=== PATIENT | male | born 1955 | race Asian ===

== ENCOUNTER 2022-08-23 13:25 | Outpatient (REF) | payer SELFPAY ==
[2022-08-23 14:40] LABS: Influenza A PCR NEGATIVE (Negative); Influenza B PCR NEGATIVE (Negative); Resp Syncy Virus RNA Qual PCR NEGATIVE (Negative); SARS COV2 PCR INHOUSE NEGATIVE (Negative)
== END 2022-08-23 13:26 | disposition home or self-care (01) ==
LOC: HO.LAB 13:25
PROVIDERS: Visit Provider Internal Medicine
DX: R43.9 Unspecified disturbances of smell and taste (principal); Z20.822 Contact with and (suspected) exposure to COVID-19
CPT/HCPCS: 0241U

== ENCOUNTER 2024-12-21 21:56 | Emergency (ER) | payer MEDICAID, SELFPAY ==
--- NOTE | 2024-12-21 | ECG_ITS ---
Test Reason : NEAR SYNCOPE Blood Pressure : */* mmHG Vent. Rate : 91 BPM Atrial Rate : 91 BPM P-R Int : 148 ms QRS Dur : 86 ms QT Int : 374 ms P-R-T Axes : 19 -52 48 degrees QTcB Int : 460 ms Normal sinus rhythm Left anterior fascicular block Abnormal ECG No previous ECGs available Referred By: Ke iMranda Electronically Signed By: VJ HUMPHREYS MD
--- NOTE | ~2024-12-21 | XR_ITS ---
CLINICAL HISTORY: weakness 2 view chest x-ray Comparison: None Findings: The lungs are clear. Normal size heart. No acute fracture. IMPRESSION: 1. No acute findings. This document has been electronically signed by: Rahul Mesa MD on 12/22/2024 07:33:36
[2024-12-21 22:05] VITALS: BP 110/70; BP 140/66; PULSE 70; PULSE 84; RESP 16; TEMP 36.4; O2SAT 95; O2SAT 96; BMI 19.5
[2024-12-21 22:28] LABS: Basophils Absolute Auto 0.1 X10*3/uL (0.0-0.2); Basophils Percent Auto 1.1 % (0-2); Hematocrit 38.1 % (42.0-52.0); Hemoglobin 13.3 g/dl (14.0-18.0); Mean Corpuscular HGB Conc 34.9 g/dl (31.0-36.0); Mean Corpuscular Hemoglobin 31.4 pg (27.0-33.0); Mean Corpuscular Volume 89.9 fL (80.0-98.0); PLT CLUMP 1; Red Blood Count 4.24 X10*6/uL (4.60-5.80); Red Cell Distribution Width 11.3 % (11.0-16.0); SCAN SMEAR FLAG 1
[2024-12-21 22:30] LABS: Eosinophils Absolute Auto 0.4 X10*3/uL (0.0-0.4); Eosinophils Percent Auto 6.6 % (0-4); Imm Gran Abs Auto 0.02 X10*3/uL (0.00-0.03); Imm Gran Pct Auto 0.4 % (0.0-0.4); Lymphocytes Absolute Auto 1.7 X10*3/uL (1.2-4.9); Lymphocytes Percent Auto 31.9 % (20-40); Mean Platelet Volume 10.7 fL (9.4-12.4); Monocytes Absolute Auto 0.5 X10*3/uL (0.1-1.2); Monocytes Percent Auto 9.6 % (2-11); Neutrophils Absolute Auto 2.7 x10*3/uL (2.0-8.3); Neutrophils Percent Auto 50.4 % (45-73)
[2024-12-21 22:34] LABS: Platelet Count 139 X10*3/uL (160-400); White Blood Count 5.4 X10*3/uL (4.8-10.8)
[2024-12-21 22:35] LABS: MANUAL DIFF FLAG NO
[2024-12-21 22:40] LABS: Anion Gap 10 (12-20); Blood Urea Nitrogen 21 mg/dL (9-16); Calcium 8.5 mg/dL (8.4-10.2); Carbon Dioxide 24 mmol/L (22-29); Chloride 107 mmol/L (96-108); Creatinine Clr Calc Pharmacy 34.5; Estimated Glomerular Filt Rate 45; Glucose Random 323 mg/dL (60-115); Potassium 3.9 mmol/L (3.3-5.1); Sodium 137 mmol/L (135-145)
[2024-12-21 22:48] LABS: Troponin-I High Sensitivity 9.5 ng/L (<3.5-35.0)
[2024-12-21 23:05] LABS: Influenza A PCR NEGATIVE (Negative); Influenza B PCR NEGATIVE (Negative); Resp Syncy Virus RNA Qual PCR NEGATIVE (Negative); SARS COV2 PCR INHOUSE NEGATIVE (Negative)
--- NOTE | 2024-12-22 00:06 | PC.NURSE ---
Pt is awake, alert, and oriented X 4 with assistance from son. OOB to use the bathroom, accompanied by son. Ambulates with a steady gait unassisted. Pt denies any dizziness or fatigue at this time. Denies any complaints or concerns.
[2024-12-22 00:25] LABS: Appearance Urine Clear; Color Urine Yellow; Glucose Urine UA >=1000 mg/dL (Negative); Leukocyte Esterase Urine Negative (Negative); Nitrite Urine Negative (Negative); Specific Gravity - Urine 1.015 (1.005-1.025); UMIC TRIGGER UACC YES; Urine Blood Negative (Negative); Urine Ketones Negative (Negative); Urine Protein Negative (Neg-Trace)
[2024-12-22 00:27] LABS: Bacteria Urine None Seen (None Seen); Hyaline Casts Urine 0-2 /LPF (0-2); RBC Urine 0-2 /HPF (0-2); Squamous Epithelial Cell Urine 0-2 /HPF (0-2); WBC Urine 0-5 /HPF (0-5)
--- NOTE | 2024-12-22 02:41 | PC.NURSE ---
Pt has been sleeping most of the shift with son at the bedside. Pt is easily arousable to verbal stimuli and VS have been stable since arrival. Denies any pain or discomfort at this time. Ambulates well without assistance, uses a steady gait.
[2024-12-22 05:47] VITALS: BP 152/91; PULSE 84; RESP 22; TEMP 36.5; O2SAT 95
--- NOTE | 2024-12-22 06:49 | ED_ITS ---
HPI - Weakness General Chief complaint: Weakness Stated complaint: GEN WEAKNESS, LETHARGIC PER EMS Time Seen by Provider: 12/22/24 06:41 Source: patient Mode of arrival: ambulatory Limitations: language barrier (Yi speaking ) History of Present Illness ED Provider: Ashley Landers APRN HPI Narrative: 69 yo male with no known medical history presents to the ER with complaints of feeling tired last evening while eating his dinner at 20:00. Patient reports he was sitting down eating when he felt tired which she describes as feeling sleepy. Patient reports he was able to eat dinner and since being here in the emergency room he feels much improved. Denies any associated chest pain, shortness of breath, headache, abdominal pain, dizziness, nausea, vomiting, diaphoresis. Patient reports that [place] the [place] 6 months out of the year and then lives in [place] for 6 months. He does not have a primary care doctor in the [place] He is unsure if he has active insurance. Related Data Previous Rx's ?Medication ?Instructions ?Recorded azithromycin 250 mg tablet See Rx Instructions PO .COMPLEX #6 08/23/22 tabs prednisone 20 mg tablet 60 mg (3 x 20 mg) PO DAILY #9 tabs 08/23/22 blood sugar diagnostic (FreeStyle #100 ea 12/22/24 Lite Strips) blood-glucose meter (FreeStyle #1 ea 12/22/24 [place] Lite kit) empagliflozin 10 mg tablet 10 mg PO DAILY #30 tabs 12/22/24 (Jardiance) insulin glargine 100 unit/mL (3 15 unit (0.15 mL) subcut QAM #15 mL 12/22/24 mL) subcutaneous pen (Lantus Solostar U-100 Insulin) lancets 28 gauge (FreeStyle #100 ea 12/22/24 Lancets) Allergies Allergy/AdvReac Type Severity Reaction Status Date / Time No Known Allergies Allergy Verified 12/21/24 22:10 Review of Systems 2 Review of Systems: Yes all other systems are reviewed and are negative Constitutional: Constitutional: Reports no additional constitutional complaints, Denies body ache(s), Denies chills, Denies fever(s), Denies headache(s) and Reports weakness Eyes: Eyes: Reports no additional eye complaints and Denies change in vision ENT: Reports system reviewed and no additional complaints, except as documented, Denies dizziness, Denies headache(s), Denies nasal congestion, Denies nasal discharge and Denies neck pain Cardiovascular: Cardiovascular: Reports no additional cardiovascular complaints, Denies chest pain, Denies leg edema and Denies dyspnea Respiratory: Respiratory: Reports no additional respiratory complaints, Denies cough and Denies dyspnea Gastrointestinal: Gastrointestinal: Reports no additional gastrointestinal complaints, Denies abdominal pain, Denies diarrhea, Denies nausea and Denies vomiting Genitourinary: Genitourinary: Denies urinary incontinence Musculoskeletal: Musculoskeletal: Reports no additional musculoskeletal complaints, Denies back pain, Denies arthralgias, Denies joint swelling, Denies neck pain, Denies numbness and Denies tingling Integumentary/Breasts: Skin/Breast: Reports system reviewed and no additional complaints, except as docu and Denies rash Neurologic: Reports system reviewed and no additional complaints, except as documented, Denies Abnormal speech present, Denies dizziness, Denies headache(s), Denies numbness, Denies tingling and Reports weakness PMFSH Past Medical History Attestation statement: The following information was validated with the patient. Source: old records reviewed and nursing notes reviewed Physical Exam 2 Vital Signs: Vital Signs: Last Vital Signs Temp 97.7 F 12/22/24 10:51 Pulse 92 12/22/24 10:51 Resp 18 12/22/24 10:51 BP 164/86 H 12/22/24 10:51 Pulse Ox 95 12/22/24 10:51 O2 Del Method Room Air 12/22/24 10:51 BMI result Body Mass Index 19.5 Const: General: cooperative, healthy appearing, comfortable and no acute distress Orientation/consciousness: patient oriented x3 Limitations: no limitations HEENT: Head: Yes normal to inspection Ears: hearing grossly normal bilaterally and TM's normal bilaterally General nose exam: Normal external nose present Face and sinus: Yes normal facial exam Mouth: Normal oral and palatal mucosa present Throat: Yes posterior oropharynx normal, Yes tonsils normal and Yes uvula midline Eyes: General: appearance normal, both eyes and all related structures P upils: Equal, round and reactive pupils present Neck: Neck: Yes normal visual inspection, Yes full ROM, Yes no lymphadenopathy and Yes no meningeal signs Chest: Chest palpation & inspection: normal inspection of the chest Resp: Effort & Inspection: normal respiratory effort Auscultation: clear to auscultation bilaterally Cardio: Rate: regular rate Rhythm: regular rhythm Peripheral pulses: P eripheral pulses 2+ throughout GI: Inspection: Yes normal to inspection Palpation (GI): Soft to palpation and nontender Auscultation: normal bowel sounds Back/Spine/Pelvis: Thoracic/Lumbar Spine: thoracic and lumbar spine normal to inspection Skin: General skin exam: no rashes or lesions noted Neuro: General: patient oriented x3, no meningeal signs, no focal motor deficits and normal sensation to monofilament Cranial nerves: Yes Equal, round and reactive pupils present Cognition (Neuro): normal cognition S peech: No Abnormal speech present Gait exam (Neuro): Normal gait present M otor exam (neuro): 5/5 motor strength present throughout Extrem: General: Yes normal to inspection and Yes full ROM Course Course Course Narrative: BG 323. Will add on A1c. No known history of DM. Reevaluation(s) Reevaluation #1: A1c is 9.5. Consistent with diagnosis of diabetes. Discussed case with Dr. Malik. Due to mild CKD patient will be started on Lantus 15 units daily and Jardiance 10 mg daily. The patient was instructed in the ER by the nurse on how to check his blood sugar as well as how to self administer in insulin. We discussed dietary changes at home. He did meet with case management and was provided resources on outpatient primary care. I was able to send his prescriptions into the pharmacy and I did verify with the pharmacist that he had active insurance. Reviewed worrisome signs and symptoms of when to return to the emergency room. Comfortable plan for discharge home. Medications Administered Discontinued Medications Generic Name Dose Route Start Last Admin Trade Name Freq PRN Reason Stop Dose Admin Sodium Chloride 500 mls @ 999 mls/hr 12/22/24 07:08 12/22/24 08:06 Ns IV 12/22/24 07:38 Infused .Q31M STA Infusion Insulin Glargine 15 unit 12/22/24 09:55 12/22/24 10:18 Insulin Glargine,Hum.Rec.Anlog 100 Unit/Ml 10 Ml Vial SUBCUT 12/22/24 09:56 15 unit STAT STA Administration Medical Decision Making Medical Decision Making MDM Narrative: 69yo male with no known medical history but several social barriers here with a vague episode of fatigue last evening at 8pm now resolved with no other associated symptoms. Exam is benign with no focal finding. VSS Will obtain labs, EKG, CXR, UA, viral testing Differential Diagnosis Differential Diagnoses: The differential diagnosis associated with the presentation includes Metabolic cause, underlying infectious cause ACS less likely with 2 flat troponins, non ischemic EKG Low suspician for SAH, CVA, MG with no focal findings on exam Admission/Observation Consideration of admission/observation: Escalation of care including admission/observation considered New diagnosis of DM not in DKA. Will need CM involvement to help establish PCP, understand insurance coverage and determine dispo home Consult Healthcare Provider Case management Lab Data MDM Lab Attestation statement: I reviewed the patient's lab results. 12/21/24 22:23 12/21/24 22:23 Labs: Lab Results 12/21/24 12/22/24 12/22/24 Range/Units 22:23 00:20 07:27 WBC 5.4 (4.8-10.8) X10*3/uL RBC 4.24 L (4.60-5.80) X10*6/uL Hgb 13.3 L (14.0-18.0) g/dl Hct 38.1 L (42.0-52.0) % MCV 89.9 (80.0-98.0) fL MCH 31.4 (27.0-33.0) pg MCHC 34.9 (31.0-36.0) g/dl RDW 11.3 (11.0-16.0) % Plt Count 139 L (160-400) X10*3/uL MPV 10.7 (9.4-12.4) fL Immature Gran % (Auto) 0.4 (0.0-0.4) % Neut % (Auto) 50.4 (45-73) % Lymph % (Auto) 31.9 (20-40) % [place] % (Auto) 9.6 (2-11) % Eos % (Auto) 6.6 H (0-4) % Baso % (Auto) 1.1 (0-2) % Lymph # (Auto) 1.7 (1.2-4.9) X10*3/uL [place] # (Auto) 0.5 (0.1-1.2) X10*3/uL Eos # (Auto) 0.4 (0.0-0.4) X10*3/uL Baso # (Auto) 0.1 (0.0-0.2) X10*3/uL Abs Immat Gran (auto) 0.02 (0.00-0.03) X10*3/uL Absolute Neuts (auto) 2.7 (2.0-8.3) x10*3/uL Absolute Nucleated RBC 0.000 (0.0-0.012) X10*3/uL Nucleated RBC % (auto) 0.0 (0.0-0.2) /100WBC Sodium 137 (135-145) mmol/L Potassium 3.9 (3.3-5.1) mmol/L Chloride 107 (96-108) mmol/L Carbon Dioxide 24 (22-29) mmol/L Anion Gap 10 L (12-20) BUN 21 H (9-16) mg/dL Creatinine 1.54 H (0.5-1.4) mg/dL Estim Creat Clear Calc 34.5 Estimated GFR 45 Random Glucose 323 H (60-115) mg/dL Estimat Average Glucose 226 mg/dL Hemoglobin A1c % 9.5 H (<6.0) % Calcium 8.5 (8.4-10.2) mg/dL Total Bilirubin 0.5 (0.0-1.0) mg/dL Direct Bilirubin 0.1 (0.0-0.5) mg/dL AST 26 (5-37) U/L ALT 14 (0-40) U/L Alkaline Phosphatase 82 (39-117) U/L Troponin I High Sens 9.5 7.1 (<3.5-35.0) ng/L Total Protein 7.2 (6.5-8.0) g/dL Albumin 3.6 (3.5-5.0) g/dL Urine Color Yellow Urine Appearance Clear Urine pH 6.0 (5.0-9.0) Ur Specific [place] 1.015 (1.005-1.025) Urine Protein Negative (Neg-Trace) mg/dL Urine Glucose (UA) >=1000 H (Negative) mg/dL Urine Ketones Negative (Negative) mg/dL Urine Blood Negative (Negative) Urine Nitrite Negative (Negative) Ur Leukocyte Esterase Negative (Negative) Urine RBC 0-2 (0-2) /HPF Urine WBC 0-5 (0-5) /HPF Ur Squamous Epith Cells 0-2 (0-2) /HPF Urine Bacteria None Seen (None Seen) Hyaline Casts 0-2 (0-2) /LPF Influenza Type A (PCR) NEGATIVE (Negative) Influenza Type B (PCR) NEGATIVE (Negative) RSV RNA Qual (PCR) NEGATIVE (Negative) SARS-CoV-2 RNA (RT-PCR) NEGATIVE (Negative) Independent Interpretation I performed an independent interpretation of an: EKG and Plain X-Ray Interpretation: I independently viewed the x-ray and agree with the radiology report I independently viewed the EKG which shows normal sinus rhythm with a rate of 91, normal LA, normal QRS,normal qt Radiology Impression Discussion of test interpretation with radiology: I have reviewed the radiologist's reading. Radiologist Impression: [place] [id number] XRay Report Signed Patient: Teo Edwards MR#: [id number] : 1955 Acct:[id number] Age/Sex: 69 / M ADM Date: 12/21/24 Loc: .ED Attending Dr: Ordering Physician: Ashley Landers NP Date of Service: 12/22/24 Procedure(s): XR chest 2V Accession Number(s): [id number] cc: Ashley Landers NP; Physician,None ~ CLINICAL HISTORY: weakness 2 view chest x-ray Comparison: None Findings: The lungs are clear. Normal size heart. No acute fracture. IMPRESSION: 1. No acute findings. This document has been electronically signed by: Rahul Mesa MD on 12/22/2024 07:33:36 Independent Historian Clinical information obtained from an independent historian. History obtained from or confirmed by: Other (Brother in [facility] ) Discharge Plan Discharge Clinical Impression: Diabetes mellitus Patient Disposition: Home, Self-Care Instructions: Type 2 Diabetes in Adults: New Diagnosis (DC), How to Give an Insulin Injection (ED), Diabetes and Nutrition (ED), How to Check your Blood Sugar (ED) Prescriptions: New (DME) blood-glucose meter [FreeStyle [place] Lite] Kit See Rx Instructions .Route Qty: 1 0RF Rx Instructions: As directed (DME) FreeStyle Lite Strips Strip See Rx Instructions .Route Qty: 100 0RF Rx Instructions: As directed (DME) lancets [FreeStyle Lancets] 28 gauge misc See Rx Instructions .Route Qty: 100 0RF Rx Instructions: As directed insulin glargine [Lantus Solostar U-100 Insulin] 100 unit/mL (3 mL) insulin pen 15 unit subcut QAM Qty: 15 0RF Jardiance 10 mg tablet 10 mg PO DAILY Qty: 30 0RF No Action azithromycin 250 mg tablet See Rx Instructions PO .COMPLEX Qty: 6 0RF Rx Instructions: take 500 mg today (day 1), then 250 mg for 4 days (days 2-5) PO prednisone 20 mg tablet 60 mg PO DAILY Qty: 9 0RF Referrals: Physician,None [Primary Care Provider] - 1 week Interventions: ED Discharge Assessment Last Done: 12/22/24 10:51 Discharge Date/Time: 12/22/24 11:04 Print Language: [place]
[2024-12-22] MEDS: 0.9 % Sodium Chloride 500 ML 999 ML IV (07:24)
[2024-12-22 07:53] LABS: Estimated Average Glucose 226 mg/dL; Hemoglobin A1c % 9.5 % (<6.0); Total Hemoglobin (HGBA1C) 3709.0907 umol/L
[2024-12-22 07:56] LABS: Alanine Aminotransferase 14 U/L (0-40); Albumin Level 3.6 g/dL (3.5-5.0); Alkaline Phosphatase 82 U/L (39-117); Aspartate Amino Transferase 26 U/L (5-37); Bilirubin Direct 0.1 mg/dL (0.0-0.5); Bilirubin Total 0.5 mg/dL (0.0-1.0); Total Protein 7.2 g/dL (6.5-8.0)
[2024-12-22 08:03] LABS: Troponin-I High Sensitivity 7.1 ng/L (<3.5-35.0)
--- NOTE | 2024-12-22 08:55 | MHC.CM.PN ---
CM RECEIVED ED CONSULT AND MET WITH PT/BROTHER IN LAW AT BEDSIDE IN ED. BROTHER IN LAW IS TRANSLATING. PT LIVES WITH DAUGHTER AND . PT LIVES IN [place] 6 MONTHS OUT OF YEAR AND JUST [place] THE [place] 10 DAYS AGO. PT HAS NO PCP AND IS UNSURE IF HEALTH INSURANCE IS STILL ACTIVE. PT IS FUNCTIONALLY INDEPENDENT AND HAS NO NEED FOR P.T. EVAL. DP: CM PROVIDED [facility] BROCHURE AND ENCOURAGED PT TO GET A PCP/CALL MH TO INQUIRE ABOUT STATUS OF INSURANCE. NURSE WILL DO BEDSIDE TEACH ON INSULIN ADMINISTRATION AND BROTHER IN [employer] WILL TRANSPORT HOME.
[2024-12-22 09:59] VITALS: BP 164/86; PULSE 92; RESP 18; TEMP 36.5; O2SAT 95
[2024-12-22] MEDS: Insulin Glargine,Hum.rec.anlog 100 UNIT/ML 10 ML VIAL 15 UNIT SUBCUT (10:18)
[2024-12-22 10:51] VITALS: BP 164/86; PULSE 92; RESP 18; TEMP 36.5; O2SAT 95
--- NOTE | 2024-12-22 10:55 | PC.NURSE ---
pt educated on how to manage new diabetes diagnosis at home. pt provided teach back method.
[2024-12-22 11:40] LABS: Glucose, Whole Blood 145 mg/dL (60-115)
== END 2024-12-22 11:04 | disposition home or self-care (01) ==
PROVIDERS: Emergency Medicine; Family Medicine Geriatric Medicine; Nurse Practitioner Family; Emergency Provider Internal Medicine
DX: E11.9 Type 2 diabetes mellitus without complications (principal); R53.1 Weakness; Z03.818 Encounter for observation for suspected exposure to other biological agents ruled out
CPT/HCPCS: 0241U; 36415; 71046; 80048; 80076; 81001; 82947; 83036; 84484; 85025; 93005; 96360; 99284; 99285

== ENCOUNTER → 2024-12-21 22:09 | Outpatient (BNV) | payer MEDICAID, SELFPAY | PROVIDERS: Emergency Provider Internal Medicine; Visit Provider Internal Medicine Cardiovascular Disease | DX: I44.4 Left anterior fascicular block (principal) | CPT/HCPCS: 93010 ==

== ENCOUNTER → 2024-12-22 07:08 | Outpatient (BNV) | payer MEDICAID, SELFPAY | PROVIDERS: Visit Provider Radiology Diagnostic Radiology | DX: R53.1 Weakness (principal) | CPT/HCPCS: 71046 ==

== ENCOUNTER 2025-04-24 10:11 | Outpatient (REF) | payer SELFPAY ==
--- OUTSIDE RECORDS SUMMARY | 2025-04-24 11:02 | XMS_ITS | Clinical Summary ---
Author Organization [employer] Address [address] [place] [address] Care Team Providers Care Vocational Rehabilitation Specialist Name Role Phone Bernadette Bruce Primary Care Provider [phone] Allergies No known active allergies Encounters Date Type Department Care Team Description 04/24/2025 9:00 AM EDT Office Visit [facility] [address] [place] [address] [phone] Bernadette Bruce FNP Encounter for immunization (Primary Dx); Adult wellness visit 04/24/2025 Travel 04/23/2025 Telephone [facility] [address] [place] [address] [phone] Janet Woods MA chart prep 04/17/2025 Patient Outreach [facility] [address] [place], [place] [phone] Bernadette Bruce FNP Pre-visit Planning (SDOH will need to be completed In office. ) from Last 3 Months Immunizations Immunization Administration Dates Next Due Influenza Injectable Quadriv alant Preservative Free IIV4 MDCK 07/28/2022 Influenza, IIV3, injectable 06/25/2016 Moderna Covid-19 Vaccine 12+ 10/04/2021 Pfizer Covid-19 Vaccine 12+ 07/28/2022,,12/15/2020 Pneumococcal Conjugate PCV 20 04/24/2025 Tdap 04/24/2025 Family History Medical History Relation Name Comments No Known Problems Brother No Known Problems Daughter No Known Problems Father No Known Problems Mother No Known Problems Sister Relation Name Status Comments Brother Daughter Father Mother Sister Social History Tobacco Use Types Packs/Day Years Used Date Smoking Tobacco: Never Smokeless Tobacco: Never Tobacco Cessation:Counseling Given: Not Answered Alcohol Use Standard Drinks/Week Comments Yes 3 (1 standard drink = 0.6 oz pur e alcohol) Alcohol Answer Date Recorded How often do you have a drink containing alcohol ? 4 04/24/2025 How many drinks containing a lcohol do you have on a typical day when you are drinking? 1 04/24/2025 How often do you have six or more drinks on one occasion? 2 04/24/2025 Depression Answer Date Recorded Patient Health Questionnaire-9 Score 0 04/24/2025 Patient Health Questionnaire-9 Score 0 04/24/2025 Last PHQ-9: Questionnaire Data Not on file 0 04/24/2025 Housing Stability Answer Date Recorded What is your housing situation today? I do not have housing (Staying with others, in a hotel, in a senior care, living outside on the street, on a beach, in a car, or in a park 04/24/[address] you li ve. Do you have problems with any of the following? None of the above 04/24/2025 Food Insecurity Answer Date Recorded Within the past 12 months, y ou worried that your food would run out before you got money to buy more: Sometimes True 2024 Within the past 12 months,th e food you bought just didn't last and you didn't have enough money to get more: Never True 04/24/2025 Transportation Answer Date Recorded In the past 12 months, has l ack of transportation kept you from medical appts, meetings, work or from getting things needed for daily living? No 04/24/2025 Utilities Answer Date Recorded In the past 12 months, has t he electric, gas, oil or water company threatened to shut off services in your home? No 04/24/2025 Depression Answer Date Recorded Patient Health Questionnaire-2 Score 0 04/24/2025 Internet Access Answer Date Recorded Internet Access Q1 Yes 04/24/2025 Internet Access Q2 Not on file 04/24/2025 Sex and Gender Information Value Date Recorded Sex Assigned at Male 04/22/2025 9:02 AM EDT Legal Sex Male 10:40 AM EDT Gender Identity Male 04/22/2025 9:02 AM EDT Sexual Orientation Straight 04/22/2025 9: 02 AM EDT Last Filed Vital Signs Vital Sign Reading Time Taken Comments Blood Pressure 136/84 04/24/2025 9:05 AM EDT Pulse 92 04/24/2025 9:05 AM EDT Temperature 36.6 C (97.9 F) 04/24/2025 9:05 AM EDT Respiratory Rate 12 04/24/2025 9:05 AM EDT Oxygen Saturation 98% 04/24/2025 9:05 AM EDT Inhaled Oxygen Concentration - - Weight 53.6 kg (118 lb 3.2 oz) 04/24/2025 9:05 A M EDT Height 158 cm (5' 2.21 ) 04/24/2025 9:05 AM EDT Body Mass Index 21.48 04/24/2025 9:05 AM EDT Plan of Treatment Upcoming Encounters Date Type Department Care Team (Late st Contact Info) Description 05/03/2025 9:00 AM EDT Office Visit [facility] [address] [place], [place] [phone] Bernadette Bruce FNP [address] [place], [place] [phone] Health Maintenance Due Date Last Done Comments CT Colonography 1955 Colonoscopy 1955 Colorectal Cancer Screening 1955 FIT DNA/Cologuard 1955 FIT 1955 FOBT 1955 Lipid Panel 1955 Sigmoidoscopy 1955 Hepatitis C Screening 02/08/1972 Zoster Vaccines (1 of 2) 02/08/2004 COVID-19 Vaccine ( season) 2024 07/28/2022, 10/04/2021, 01/06/2021, Additional history exists Influenza Vaccine (#1) 2025 07/28/2022, 2015 Alcohol/Substance Use Screening 04/24/2026 04/24/2025 Depression Screening 04/24/2026 04/24/2025, 04/24/20 SDOH Screening 04/24/2026 04/24/2025 Tobacco Screening 04/24/2026 04/24/2025 RSV Patients and Patients Aged 60 years or older (1 - 1-dose 75+ series) 2029 DTaP/Tdap/Td Vaccines (2 - Td or Tdap) 04/24/2035 04/24/2025 Pneumococcal Vaccine: 50+ Years Completed 04/24/2025 HIB Vaccines Aged Out No longer eligi ble based on patient's age to complete this topic HPV Vaccines Aged Out No longer eligi ble based on patient's age to complete this topic Hepatitis A Vaccines Aged Out No long er eligible based on patient's age to complete this topic Hepatitis B Vaccines Aged Out No long er eligible based on patient's age to complete this topic IPV Vaccines Aged Out No longer eligi ble based on patient's age to complete this topic Meningococcal B Vaccine Aged Out No l onger eligible based on patient's age to complete this topic Meningococcal Vaccine Aged Out No carmen eduardo eligible based on patient's age to complete this topic RSV under 20 months Aged Out No longe r eligible based on patient's age to complete this topic Rotavirus Vaccines Aged Out No longer eligible based on patient's age to complete this topic Insurance [facility] Care Teams Vocational Rehabilitation Specialist Relationship Specialty Start Date End Date Bernadette Bruce FNP [address] [place] [phone] PCP - General Family Medicine 04/24/25
[2025-04-24 13:24] LABS: MANUAL DIFF FLAG NO
[2025-04-24 13:38] LABS: Hematocrit 41.6 % (42.0-52.0); Hemoglobin 14.5 g/dl (14.0-18.0); Imm Gran Abs Auto 0.00 X10*3/uL (0.00-0.03); Imm Gran Pct Auto 0.0 % (0.0-0.4); Lymphocytes Absolute Auto 2.3 X10*3/uL (1.2-4.9); Mean Corpuscular HGB Conc 34.9 g/dl (31.0-36.0); Mean Corpuscular Hemoglobin 31.6 pg (27.0-33.0); Mean Corpuscular Volume 90.6 fL (80.0-98.0); NRBC Abs Auto 0.000 X10*3/uL (0.0-0.012); NRBC Pct Auto 0.0 /100WBC (0.0-0.2); Platelet Count 185 X10*3/uL (160-400); Red Blood Count 4.59 X10*6/uL (4.60-5.80); White Blood Count 5.3 X10*3/uL (4.8-10.8)
[2025-04-24 13:56] LABS: Hemoglobin A1C 250.4196 umol/L; Total Hemoglobin (HGBA1C) 3782.5481 umol/L
[2025-04-24 14:05] LABS: Anion Gap 11 (12-20); Blood Urea Nitrogen 17 mg/dL (9-16); Calcium 8.9 mg/dL (8.4-10.2); Carbon Dioxide 25 mmol/L (22-29); Chloride 108 mmol/L (96-108); Estimated Glomerular Filt Rate 60; Potassium 4.2 mmol/L (3.3-5.1); Sodium 140 mmol/L (135-145)
[2025-04-24 14:31] LABS: Prostate Specific Antigen 0.40 ng/mL (<0.05-4.0)
[2025-04-25 08:20] LABS: HBS Num1 76.25 mIU/mL (0-7.99); HBc Num1 4.15 S/CO (0.00-0.79); HBsAGNum1 0.35 S/CO (0.00-0.99); HIV Num 1 0.06 S/CO (0.00-0.99); Hepatitis B Surface Antigen Negative (Negative); ~HepC Num1 0.19 S/CO (0.00-0.79); ~Hepatitis B Surface Antibody REACTIVE (Nonreactive); ~Hepatitis C Antibody Nonreactive (Nonreactive)
[2025-04-25 10:38] LABS: HBc Num2 4.22 S/CO; HBc Num3 4.24 S/CO
== END 2025-04-24 10:12 | disposition home or self-care (01) ==
LOC: HO.HHCL 10:11
PROVIDERS: PCP Nurse Practitioner Family; Visit Provider Nurse Practitioner Family
DX: Z11.4 Encounter for screening for human immunodeficiency virus [HIV] (principal); Z11.59 Encounter for screening for other viral diseases
CPT/HCPCS: 36415; 80048; 83036; 84153; 85025; 86704; 86706; 86803; 87340; 87389

== ENCOUNTER 2025-05-15 09:46 | Outpatient (REF) | payer MEDICAID, SELFPAY ==
--- OUTSIDE RECORDS SUMMARY | 2025-05-15 10:37 | XMS_ITS | Clinical Summary ---
Author Organization [employer] Address [address] [facility] [address] [place] [address] Care Team Providers Care Publicity Director Name Role Phone Bernadette Bruce [facility] Primary Care Provider [phone] Allergies No known active allergies Medications metFORMIN, OSM, (Fortamet) 500 MG 24 hr tabletIndicati ons:Type 2 diabetes mellitus with hyperglycemia, without long-term current use of insulin (CMS/HCC) Take 1 tablet (500 mg) by mouth with evening meal. Do not crush, chew, or split. 30 tablet 2 5 04/27/20 26 Active glucose blood (OneTouch Ultra) test stripIndicatio ns:Type 2 diabetes mellitus with hyperglycemia, without long-term current use of insulin (CMS/HCC) Use to test blood sugar 2 times daily 100 each 12 5 05/03/20 26 Active Aimsco Twist Lancets 33G miscIndication s:Type 2 diabetes mellitus with hyperglycemia, without long-term current use of insulin (CMS/HCC) 1 Lancet 2 times daily. 60 each 3 5 Active Alcohol Swabs 70 % padsIndication s:Type 2 diabetes mellitus with hyperglycemia, without long-term current use of insulin (CMS/HCC) Use to test blood sugar 2 times daily 100 each 5 Active Blood Glucose Monitoring Suppl (ONE TOUCH ULTRA 2) w/Device kitIndications :Type 2 diabetes mellitus with hyperglycemia, without long-term current use of insulin (CMS/HCC) Use to test blood sugar 2 times daily 1 kit 5 Active Blood Pressure kit 1 Units 2 times daily. 1 kit 5 Active glucose blood (OneTouch Ultra) test strip Use to test blood sugar 2 times daily 100 each 12 5 05/03/20 25 Discontinued Active Problems Problem Noted Date Diagnosed Date Memory changes 05/06/2025 Alcohol use disorder 05/06/2025 Type 2 diabetes mellitus wit h hyperglycemia, without long-term current use of insulin 05/06/2025 Encounters Date Type Department Care Team Description 05/15/2025 Travel 05/07/[address] [address] Bernadette Bruce FNP 05/07/[address] [address] Barbara Hartman, LELA 05/03/2025 9:00 AM EDT Office Visit [address] [address] Bernadette Bruce FNP Type 2 diabetes mellitus with hyperglycemia, without long-term current use of insulin ([facility]) (Primary Dx); Alcohol use disorder; Memory changes 05/03/2025 Travel 05/02/[address] [address] Bernadette Bruce FNP Chart Prep 04/29/[address] [address] Barbara Hartman RN 04/26/2025 Travel 04/24/2025 9:00 AM EDT Office Visit [address] [address] Bernadette Bruce FNP Adult wellness visit (Primary Dx); Encounter for immunization; Memory change; Type 2 diabetes mellitus with hyperglycemia, without long-term current use of insulin ([facility]) 04/24/2025 Travel 04/23/[address] [address] Janet Woods [place] chart prep 04/17/2025 Patient Outreach [facility] [address] [place] [address] Bernadette Bruce FNP Pre-visit Planning (SDOH will [...] Types Packs/Day Years Used Date Smoking Tobacco: Former Cigarettes Passive Smoke Exposure: Past Smokeless Tobacco: Former Tobacco Cessation:Counseling Given: Not Answered Alcohol Use [...] with others, in a hotel, in a fpc, living outside on the street, on a [...] the past 12 months, has t he [employer], oil or water company threatened to shut [...] Sign Reading Time Taken Comments Blood Pressure 138/80 05/03/2025 9:52 AM EDT Pulse 84 05/03/2025 8:59 AM EDT Temperature 36.2 C (97.2 F) 05/03/2025 8:59 AM EDT Respiratory Rate 16 05/03/2025 8:59 AM EDT Oxygen Saturation 98% 05/03/2025 8:59 AM EDT Inhaled Oxygen Concentration - - Weight 53.6 kg (118 lb 4 oz) 05/03/2025 8:59 AM EDT Height 157.9 cm (5' 2.16 ) 05/03/2025 8:59 AM ED T Body Mass Index 21.52 05/03/2025 8:59 AM EDT Plan of Treatment Upcoming Encounters Date Type Department Care Team (Late st Contact Info) Description 08/16/2025 9:00 AM EST Office Visit [facility] [address] [place] [address] Shawanda Modi, OD [address] [place] [address] Health Maintenance Due Date Last Done Comments CT Colonography 1954 Colonoscopy 1954 Colorectal Cancer Screening 1954 FIT DNA/Cologuard 1954 FIT 1954 FOBT 1954 Lipid Panel 1954 Sigmoidoscopy 1954 Diabetes: Foot Exam 02/08/1964 Eye Exam 02/08/1964 Diabetes: Urine Protein Screening 1973 Zoster Vaccines (1 of 2) 02/08/2004 COVID-19 Vaccine (5 - 2024-25 season) 2024 07/28/2022, 10/04/2021, 01/06/2021, Additional history exists Influenza Vaccine (#1) 2025 , 06/25/2016, 06/25/2016 Diabetes: Hemoglobin A1C 07/25/2025 04/24/2025 Alcohol/Substance Use Screening 04/24/2026 04/24/2025 Depression Screening 04/24/2026 04/24/2025, 04/24/20 SDOH Screening 04/24/2026 04/24/2025 Tobacco Screening 05/03/2026 05/03/2025 RSV Patients and Patients Aged 60 years or older (1 - 1-dose 75+ series) 2029 DTaP/Tdap/Td Vaccines (2 - Td or Tdap) 04/24/2035 04/24/2025 Hepatitis C Screening Completed 04/24/2025 Pneumococcal Vaccine: 50+ Years Completed 04/24/2025 [...] on patient's age to complete this topic Procedures Procedure Name Priority Date/Time Associated Diagnosis Comments PSA, TOTAL Routine 04/24/2025 10:39 AM EDT Adult wellness visit HEMOGLOBIN A1C Routine 04/24/2025 10:39 AM EDT Adult wellness visit BASIC METABOLIC PANEL Routine 04/24/2025 10:39 AM EDT Adult wellness visit CBC WITH AUTO DIFFERENTIAL Routine 04/24/2025 10:39 AM EDT Adult wellness visit HIV 1/2 ANTIGEN/ANTIBODY, FOURTH GENERATION W/RFL Routine 04/24/2025 10:39 AM EDT Adult wellness visit HEPATITIS C AB W/REFL TO HCV RNA, QN, PCR Routine 04/24/2025 10:39 AM EDT Adult wellness visit HEPATITIS B SURFACE ANTIBODY, QUALITATIVE Routine 04/24/2025 10:39 AM EDT Adult wellness visit HEPATITIS B SURFACE ANTIGEN, EIA Routine 04/24/2025 10:39 AM EDT Adult wellness visit HEPATITIS B CORE AB TOTAL Routine 04/24/2025 10:39 AM EDT Adult wellness visit from Last 3 Months Results * (ABNORMAL) CBC auto differential (04/24/2025 10:39 AM EDT) White Blood Count 5.3 4.8 - 10.8 X10*3/uL [facility] Red Blood Count 4.59(L) 4.60 - 5.80 X10*6/uL [facility] Hemoglobin 14.5 14.0 - 18.0 g/dl [facility] Hematocrit 41.6(L) 42.0 - 52.0 % [facility] Mean Corpuscular Volume 90.6 80.0 - 98.0 fL [facility] Mean Corpuscular Hemoglobin 31.6 27.0 - 33.0 pg [facility] Mean Corpuscular HGB Conc 34.9 31.0 - 36.0 g/dl [facility] Red Cell Distribution Width 12.1 11.0 - 16.0 % [facility] Platelet Count 185 160 - 400 X10*3/uL [facility] Mean Platelet Volume 11.2 9.4 - 12.4 fL [facility] Neutrophils Percent Auto 42.2(L) 45 - 73 % [facility] Imm Gran Pct Auto 0.0 0.0 - 0.4 % [facility] Lymphocytes Percent Auto 42.9(H) 20 - 40 % [facility] Monocytes Percent Auto 9.1 2 - 11 % [facility] Eosinophils Percent Auto 4.9(H) 0 - 4 % [facility] Basophils Percent Auto 0.9 0 - 2 % [facility] NRBC Pct Auto 0.0 0.0 - 0.2 /100WBC [facility] Neutrophils Absolute Auto 2.2 2.0 - 8.3 x10*3/uL [facility] Imm Gran Abs Auto 0.00 0.00 - 0.03 X10*3/uL [facility] Lymphocytes Absolute Auto 2.3 1.2 - 4.9 X10*3/uL [facility] Monocytes Absolute Auto 0.5 0.1 - 1.2 X10*3/uL [facility] Eosinophils Absolute Auto 0.3 0.0 - 0.4 X10*3/uL [facility] Basophils Absolute Auto 0.1 0.0 - 0.2 X10*3/uL [facility] NRBC Abs Auto 0.000 0.0 - 0.012 X10*3/uL [facility] Blood Venous blood specimen / Unknown 04/24/2025 10:39 AM EDT 04/24/2025 1:19 PM EDT us Bernadettejimmy Bruce [employer] LAB BLOOD ORDERABLES Final Res ult [facility] [address] [place] [phone] * Hepatitis C Antibody with Reflex to HCV, RNA, Quantitative, Real-Time PCR (04/24/2025 10:39 AM EDT) Hepatitis C Antibody Nonreactive Nonreactive [facility] Comment:Antibodies to HCV no t detected; does not exclude early acuteHCV infection. Blood Venous blood specimen / Unknown 04/24/2025 10:39 AM EDT 04/24/2025 1:19 [address] [facility] LAB BLOOD ORDERABLES Final Res ult Performing Organization Address [facility] Co de Phone Number [facility] [address] [place] [phone] * Hepatitis B surface antigen, EIA (04/24/2025 10:39 AM EDT) Hepatitis B Surface Ag Negative Negative [facility] Blood Venous blood specimen / Unknown 04/24/2025 10:39 AM EDT 04/24/2025 1:19 PM [address] [facility] LAB BLOOD ORDERABLES Final Res ult Performing Organization Address [facility] Co de Phone Number [facility] [address] [place] [phone] * Hepatitis B Core Antibody, Total (04/24/2025 10:39 AM EDT) Hepatitis B Core Antibody Reactive Nonreactive [facility] Comment:Presumptive evidence of anti-HBc. Blood Venous blood specimen / Unknown 04/24/2025 10:39 AM EDT 04/24/2025 1:19 [address] [facility] LAB BLOOD ORDERABLES Final Res ult Performing Organization Address [facility] Co de Phone Number [facility] [address] [place] [phone] * HIV-1/2 Antigen and Antibodies, Fourth Generation, with Reflexes (04/24/2025 10:39 AM EDT) HIV AB/AG Nonreactive Nonreactive [facility] Comment:HIV-1 p24 Ag and/or HIV-1/HIV-2 Ab not detected.A test result that is nonreactive does not exclude thepossibility of exposure to or infection with HIV-1 and/orHIV-2. Nonreactive results in this assay for individualswith prior exposure to HIV-1 and/or HIV-2 may be due toantigen and antibody levels that are below the limit ofdetection of this assay.The [employer] twidox HIV Ag/Ab Combo assay result andsupplemental assay results should be interpreted inconjunction with the patient's clinical presentation,history and other laboratory results. If the results areinconsistent with clinical evidence, additional testing issuggested to confirm the result. Blood Venous blood specimen / Unknown 04/24/2025 10:39 AM EDT 04/24/2025 1:19 PM EDT [facility] LAB BLOOD ORDERABLES Final Res ult Performing Organization Address [facility] Co de Phone Number [facility] [address] [place] [phone] * Hepatitis B Surface Antibody, Qualitative (04/24/2025 10:39 AM EDT) ~Hepatitis B Surface Antibody REACTIVE Nonreactive [facility] Comment:REACTIVE: > 11.99 mI U/mL Blood Venous blood specimen / Unknown 04/24/2025 10:39 AM EDT 04/24/2025 1:19 PM EDT [facility] LAB BLOOD ORDERABLES Final Res ult Performing Organization Address [facility] Co de Phone Number [facility] [address] [place] [phone] * PSA,Total (04/24/2025 10:39 AM EDT) Prostate Specific Antigen 0.40 <0.05 - 4.0 ng/mL [facility] Comment:PSA methodology: Abb tanika Alinity i ChemiluminescentMicroparticle Immunoassay (CMIA) Blood Venous blood specimen / Unknown 04/24/2025 10:39 AM EDT 04/24/2025 1:19 PM EDT Bernadette [facility] LAB BLOOD ORDERABLES Final Res ult Performing Organization Address [facility] Co de Phone Number [facility] [address] [place] [phone] * (ABNORMAL) Hemoglobin A1c (04/24/2025 10:39 AM EDT) Hemoglobin A1c 8.2(H) <6.0 % [facility] Comment:Hemoglobin A1C Refer ence Range Adults: 4.8 - 6.0 % Non diabetic: < 6.0 % Goal: < 7.0 %Additional Action Suggested: > 8.0 %Note: Hemoglobin A1c results are invalid for patients with abnormal amounts of HbF. Blood transfusions may impact the HbA1c concentration in the patient sample. Estimated Average Glucose 189 mg/dL [facility] Comment:eAG = Estimated ave rage glucose which is %A1C expressed asaverage glucose, using the formula of the K3L-[id number] Glucose study (ADAG), Diabetes Care, Vol.31,#8,Apr. 2007 Blood Venous blood specimen / Unknown 04/24/2025 10:39 AM EDT 04/24/2025 1:19 PM EDT [facility] LAB BLOOD ORDERABLES Final Res ult Performing Organization Address [facility] de Phone Number [facility] [address] [place] [phone] * (ABNORMAL) Basic Metabolic Panel (04/24/2025 10:39 AM EDT) Sodium 140 135 - 145 mmol/L [facility] Potassium 4.2 3.3 - 5.1 mmol/L [facility] Chloride 108 96 - 108 mmol/L [facility] Carbon Dioxide 25 22 - 29 mmol/L [facility] Anion Gap 11(L) 12 - 20 [facility] Urea Nitrogen (BUN) 17(H) 9 - 16 mg/dL [facility] Creatinine, Serum 1.20 0.5 - 1.4 mg/dL [facility] Estimated Glomerular Filt Rate 60 [facility] Comment:Chronic Kidney Disea se: Estimated GFR < 60 mL/min/[id number] Kidney Disease: Estimated GFR < 15 mL/min/1.73m2 Glucose 158(H) 60 - 115 mg/dL [facility] Calcium 8.9 8.4 - 10.2 mg/dL [facility] Blood Venous blood specimen / Unknown 04/24/2025 10:39 AM EDT 04/24/2025 1:19 PM EDT Bernadette SONG LAB BLOOD ORDERABLES Final Res ult [facility] [address] [place] [phone] [phone] from Last 3 Months Insurance [facility] Care Teams Publicity Director Relationship Specialty Start Date End Date Bernadette Bruce FNP [address] [place] [phone] PCP - General Family Medicine 04/24/25
[2025-05-15 12:24] LABS: MANUAL DIFF FLAG NO
[2025-05-15 12:27] LABS: Hematocrit 44.5 % (42.0-52.0); Hemoglobin 15.4 g/dl (14.0-18.0); Imm Gran Abs Auto 0.01 X10*3/uL (0.00-0.03); Imm Gran Pct Auto 0.2 % (0.0-0.4); Lymphocytes Absolute Auto 2.3 X10*3/uL (1.2-4.9); Mean Corpuscular HGB Conc 34.6 g/dl (31.0-36.0); Mean Corpuscular Hemoglobin 31.3 pg (27.0-33.0); Mean Corpuscular Volume 90.4 fL (80.0-98.0); NRBC Abs Auto 0.000 X10*3/uL (0.0-0.012); NRBC Pct Auto 0.0 /100WBC (0.0-0.2); Platelet Count 210 X10*3/uL (160-400); Red Blood Count 4.92 X10*6/uL (4.60-5.80); White Blood Count 5.4 X10*3/uL (4.8-10.8)
[2025-05-15 12:34] LABS: Hemoglobin A1C 268.4383 umol/L; Total Hemoglobin (HGBA1C) 4065.3170 umol/L
[2025-05-15 13:12] LABS: Alanine Aminotransferase 18 U/L (0-40); Albumin Level 4.4 g/dL (3.5-5.0); Alkaline Phosphatase 74 U/L (39-117); Anion Gap 13 (12-20); Aspartate Amino Transferase 33 U/L (5-37); Blood Urea Nitrogen 19 mg/dL (9-16); Calcium 9.2 mg/dL (8.4-10.2); Carbon Dioxide 28 mmol/L (22-29); Chloride 104 mmol/L (96-108); Cholesterol 152 mg/dL (<200); Estimated Glomerular Filt Rate > 60; HDL Cholesterol 48 mg/dL (>40); Potassium 4.6 mmol/L (3.3-5.1); Sodium 140 mmol/L (135-145); Total Protein 7.9 g/dL (6.5-8.0); Triglycerides 147 mg/dL (<150)
[2025-05-15 13:14] LABS: Microalbum/Creatinine Ratio Ur 15.8 ug/mg cr (<30)
[2025-05-15 13:47] LABS: Folate 11.7 ng/mL (> or = 4.0); Prostate Specific Antigen 0.39 ng/mL (<0.05-4.0); Vitamin B12 441 pg/mL (200-900)
[2025-05-16 08:49] LABS: HBS Num1 64.48 mIU/mL (0-7.99); HBc Num1 4.38 S/CO (0.00-0.79); HBsAGNum1 0.46 S/CO (0.00-0.99); HIV Num 1 0.06 S/CO (0.00-0.99); Hepatitis B Surface Antigen Negative (Negative); ~HepC Num1 0.17 S/CO (0.00-0.79); ~Hepatitis B Surface Antibody REACTIVE (Nonreactive); ~Hepatitis C Antibody Nonreactive (Nonreactive)
[2025-05-16 11:22] LABS: HBc Num2 4.23 S/CO; HBc Num3 4.37 S/CO
== END 2025-05-15 09:47 | disposition home or self-care (01) ==
LOC: HO.HHCL 09:46
PROVIDERS: PCP Nurse Practitioner Family; Visit Provider Nurse Practitioner Family
DX: Z11.4 Encounter for screening for human immunodeficiency virus [HIV] (principal); Z11.59 Encounter for screening for other viral diseases; Z23 Encounter for immunization; E11.65 Type 2 diabetes mellitus with hyperglycemia; F10.90 Alcohol use, unspecified, uncomplicated; R41.3 Other amnesia
CPT/HCPCS: 36415; 80048; 80061; 80076; 82043; 82306; 82570; 82607; 82746; 83036; 84153; 84443; 85025; 86704; 86706; 86803; 87340; 87389